=== PATIENT | female | born 1980 | race Asian ===

== ENCOUNTER 2022-04-20 20:46 | Emergency (ER) | payer OTHER ==
[~2022-04-20] VITALS: Ht 149.9 cm; Wt 50.0 kg
[2022-04-21] MEDS ORDERED: KETOROLAC TROMETHAMINE 30 MG/ML VIAL IM ONE (01:45)
[2022-04-21] MEDS ORDERED: AMOX250C4 PO (01:58)
[2022-04-21 02:20] LABS: APPEARANCE,URINE CLEAR (CLEAR); BILIRUBIN,URINE NEGATIVE (NEGATIVE); GLUCOSE, URINE (UA) NEGATIVE (NEGATIVE); KETONES,URINE NEGATIVE (NEGATIVE); LEUKOCYTE ESTERASE ,URINE NEGATIVE (NEGATIVE); NITRATE,URINE NEGATIVE (NEGATIVE); OCCULT BLOOD,URINE NEGATIVE (NEGATIVE); PH,URINE 5.5 (5.0-8.0); PROTEIN,URINE NEGATIVE (NEGATIVE); SPECIFIC GRAVITIY, URINE 1.028 (1.003-1.030); UROBILINOGEN,URINE <=1.0 mg/dL (<=1.0)
[2022-04-21] MEDS ORDERED: TRAM-559 PO (03:02)
[2022-04-21 03:21] VITALS: BP 124/71
== END 2022-04-21 06:12 | disposition home or self-care (01) ==
LOC: EMS 20:46
DX: K08.89 Other specified disorders of teeth and supporting structures (principal); M54.50 Low back pain, unspecified
CPT/HCPCS: 81003; 84703; 99284; 72100; 96372; J1885